=== PATIENT | male | born 1950 | race Caucasian/White ===

== ENCOUNTER 2019-08-13 07:06 | Emergency (ER) | payer OTHER ==
--- NOTE | 2019-08-13 07:15 | PDOC ---
History of Present Illness - General Chief Complaint: Irregular Heart Beat Stated Complaint: TO BE CHECKED FOR ATRIAL FIBRILLATION Time Seen by Provider: 08/13/19 07:13 History Source: Patient Exam Limitations: No Limitations - History of Present Illness Initial Comments: 08/13/19 07:14 HPI 68 YOM with h/o Afib on Xarelto (recently dx'd), HTN, HLD and DM2, depression presenting with intermittent palpitations x 5 days, worse over the last few days. he states he was dx'd with Afib ~1 week ago, s/p cardiac ablation with Dr Morales at [facility] and converted back to NSR; told if sx returned, he may require cardioversion. denies triggering events or precipitants. denies recent illnesses. Denies fever, chills, chest pain, SOB, weakness, N, V, D, abdominal pain, bladder and bowel problems, focal weakness/paresthesias, leg swelling/pain, rash. Allergies: None Past Medical History/PSH: afib, HTN, DM2 Social history: Lives with family. No tobacco, ETOH or drug use. Meds: as documented in EMR Family history: noncontributory Cards: EP, Dr Morales, [facility] Review of systems Constitutional: no fevers or chills. No weakness HEENT: +dizziness. no headache. No congestion. No visual/hearing disturbances. CVS: no cp or syncope. +palpitations. Resp: no sob. No cough. Gastrointestinal: no abdominal pain, nausea, vomiting, diarrhea. Genitourinary: no urinary sx, hematuria. MUSCULOSKELETAL: No joint pain and swelling. No neck or back pain. SKIN: no redness or skin changes, no discharge, no rash. No wounds. Hematologic: no easy bruising/bleeding. NEUROLOGIC: +dizziness. No headache, LOC or altered mental status. No weakness, numbness or tingling. Psych: no anxiety +history of depression Allergic/Immunologic: no allergies All other systems reviewed and negative, or as documented in HPI. Physical exam General: Well appearing, awake and alert, NAD. HEENT: NCAT, PERRL, EOMI, clear conjunctiva, anicteric, moist mucus membranes, clear oropharynx, no oral lesions.. Neck: neck supple, FROM Resp: CTAB, normal and even respirations, no respiratory distress CVS: irregularly irregular, +tachycardia. no murmurs, 2+ peripheral pulses throughout, no peripheral edema Abdomen: soft, NTND, no rebound or guarding. Back: nontender, normal inspection and ROM MSK: no edema, VILLASEÑOR x4, ROM intact. No clubbing or cyanosis. normal bulk and tone. Extremities: no calf tenderness Neuro: alert, oriented appropriately; no focal neurologic deficits Psych: Calm and cooperative Skin: warm and well perfused, cap refill <2 sec, normal color 08/13/19 07:14 08/13/19 07:24 08/13/19 07:28 Past History - Past Medical History Allergies/Adverse Reactions: Allergies Allergy/AdvReac Type Severity Reaction Status Date / Time No Known Allergies Allergy Verified 08/13/19 07:09 Home Medications: Ambulatory Orders Atenolol [Tenormin] 50 mg PO DAILY 08/13/19 Atorvastatin Ca [Lipitor] 20 mg PO HS 08/13/19 Insulin Degludec [Tresiba Flextouch U-100] 28 unit SQ DAILY 08/13/19 Liraglutide [Victoza -] 1.2 mg SQ DAILY@0700 08/13/19 Metformin HCl [Glucophage] 1,000 mg PO BID 08/13/19 Quinapril HCl 10 mg PO DAILY 08/13/19 Rivaroxaban [Xarelto] 2.5 mg PO DAILY 08/13/19 Vortioxetine Hydrobromide [Trintellix] 20 mg PO DAILY 08/13/19 Heart Score/ECG Review #1 ECG reviewed & interpreted by me at: 07:10 General ECG Interpretation: Normal Intervals Compared to previous ECG there are: Previous ECG unavail 08/13/19 07:31 atrial fibrillation at 123 bpm - ECG Intrepretation Rhythm: Irregularly Irregular Comment:: 08/13/19 07:31 atrial fibrillation ED Treatment Course - LABORATORY CBC & Chemistry Diagram: 08/13/19 07:40 08/13/19 07:40 Medical Decision Making - Critical Care Time Total Critical Care Time (minutes): 30 (atrial fibrillation RVR) Critical Care Statement: The care of this patient involved high complexity decision making to prevent further life threatening deterioration of the patient 's condition and/or to evaluate & treat vital organ system(s) failure or risk of failure. - Medical Decision Making 08/13/19 07:29 Vital Signs Temp Pulse Resp BP Pulse Ox 98.1 F 108 H 17 148/96 99 08/13/19 07:17 08/13/19 07:17 08/13/19 07:17 08/13/19 07:17 08/13/19 07:17 pt found to be in Afib RVR rate controlled with diltiazem. labs and lytes with low Mg, repleted. remainder of lytes/trop neg. EKG with afib RVR 123 bpm. +palpitations on monitoring analyst, afib seen cxr clear, no effusion, cardiomegaly fluid or opacity/infiltrate call out to cards Dr Morales service for transfer of care and DCCV 08/13/19 08:26 - spoke to MEDICAL ART THERAPIST Mini, with Dr Morales, [place]. accept and transfer to [facility] arrhythmia unit, will do cardioversion keep NPO transfer to [facility] via EMS with monitoring analyst spoke to ED attg Dr Mcconnell, ED to ED transfer, then will proceed to arrhythmia unit for DCCV, signed out case. 08/13/19 09:07 08/13/19 09:25 Discharge - Discharge Information Problems reviewed: Yes Clinical Impression/Diagnosis: Atrial fibrillation with RVR Condition: Stable Disposition: TRANSFER ACUTE CARE/OTHER HOSP - Follow up/Referral - Patient Discharge Instructions - Post Discharge Activity - Transfer to Acute Care Facility Receiving Facility Name: [facility] Accepting Physician:: Dr Mcconnell, ED
[2019-08-13] MEDS ORDERED: dilTIAZem HCL 50 MG/10 ML - 10 ML VIAL IVPUSH ONE (07:23)
[2019-08-13 07:37] VITALS: TEMP 98.1; BMI 29.6
[2019-08-13] MEDS ORDERED: dilTIAZem HCL 50 MG/10 ML - 10 ML VIAL ONE (07:41)
[2019-08-13 08:02] LABS: BASO % 0.3 % (0-2.0); EOS % 0.6 % (0-4.5); HEMATOCRIT 41.2 % (35.4-49); HEMOGLOBIN 13.9 GM/dl (11.7-16.9); LYMPH % 18.6 % (8-40); MCH 31.8 pg (25.7-33.7); MCHC 33.9 g/dl (32.0-35.9); MEAN CELL VOLUME 93.9 fl (80-96); MEAN PLT VOLUME 7.9 fl (7.5-11.1); MONO % 8.3 % (3.8-10.2); NEUT % 72.2 % (42.8-82.8); PLATELET COUNT 232 K/MM3 (134-434); RBC 4.39 M/mm3 (4.00-5.60); RDW 12.8 % (11.9-15.9); WHITE BLOOD COUNT 6.8 K/mm3 (4.0-10.8)
[2019-08-13 08:09] LABS: ALBUMIN 3.8 g/dl (3.4-5.0); BILIRUBIN,TOTAL 0.9 mg/dl (0.2-1); CALCIUM 8.7 mg/dl (8.5-10); CREATININE 0.7 mg/dl (0.55-1.3); MAGNESIUM 1.3 mg/dL (1.8-2.4); POTASSIUM 3.8 mmol/L (3.5-5.1); TOT PROT 7.2 g/dl (6.4-8.2)
[2019-08-13 08:11] LABS: ACTIVATED PTT 33.1 SECONDS (25.2-36.5)
[2019-08-13 08:15] LABS: INR 1.65 (0.82-1.09); PROTHROMBIN TIME (PATIENT) 18.3 SEC (10.2-13.0)
[2019-08-13] MEDS ORDERED: MAGNESIUM SULF 50% (8.12 MEQ/2 ML-1 GM VIAL) IVPB ONE (08:26)
[2019-08-13] MEDS ORDERED: MAGNESIUM SULF 50% (8.12 MEQ/2 ML-1 GM VIAL) ONE (08:36)
[2019-08-13] MEDS ORDERED: dilTIAZem HCL 60 MG TABLET (FP) PO ONE (08:44)
[2019-08-13] MEDS ORDERED: dilTIAZem HCL 30 MG TABLET (FP) ONE (08:50)
[2019-08-13 10:47] VITALS: BP 124/78; PULSE 103
--- NOTE | 2019-08-14 12:24 | EKG ---
Test Reason : Blood Pressure : / mmHG Vent. Rate : 123 BPM Atrial Rate : 111 BPM P-R Int : 000 ms QRS Dur : 088 ms QT Int : 350 ms P-R-T Axes : 000 008 084 degrees QTc Int : 501 ms ATRIAL FIBRILLATION WITH RAPID VENTRICULAR RESPONSE LOW VOLTAGE QRS ABNORMAL ECG NO PREVIOUS ECGS AVAILABLE Confirmed by ANANYA TOVAR, RENATA ([id number]) on 08/14/2019 12:24:36 PM Referred By: ANDRE HADDAD Confirmed By:RENATA HARE MD
== END 2019-08-13 10:40 | disposition short-term general hospital (02) ==
LOC: FER 07:06
PROC: 3E033GC Introduction of Other Therapeutic Substance into Peripheral Vein, Percutaneous Approach (ICD-10-PCS; principal; 2019-08-13)
DX: I48.20 Chronic atrial fibrillation, unspecified (principal); Z79.01 Long term (current) use of anticoagulants; I10 Essential (primary) hypertension; E78.5 Hyperlipidemia, unspecified; E11.9 Type 2 diabetes mellitus without complications; F32.9 Major depressive disorder, single episode, unspecified
CPT/HCPCS: 36415; 71045-TC-FY; 80053; 82550; 83735; 84484; 85025; 85610; 85730; 93005; 96374; 96375; 99285-25